=== PATIENT | male | born 1955 | race Hispanic/Latino ===

== ENCOUNTER → 2019-02-21 | Day surgery (SDC) | payer MEDICARE ==
[2019-02-20 17:18] LABS: BASOPHILS # (AUTO) 0.1 (0.0-0.1); BASOPHILS % 0.6 % (0.0-1.0); EOSINOPHILS # (AUTO) 0.1 (0.0-0.4); HEMATOCRIT 45.5 % (38.2-49.6); HEMOGLOBIN 15.2 g/dL (14.0-18.0); LYMPHOCYTES # (AUTO) 3.1 (1.0-3.2); LYMPHOCYTES % 37.8 % (18.0-39.1); MEAN CORPUSCULAR HEMOGLOBIN 29.9 pg (28-32); MEAN CORPUSCULAR HGB CONC 33.4 g/dL (31-35); MEAN CORPUSCULAR VOLUME 89.4 fL (81-99); MONOCYTES # (AUTO) 0.4 (0.2-0.8); MONOCYTES % 5.3 % (4.4-11.3); NEUTROPHILS # (AUTO) 4.5 (2.1-6.9); NEUTROPHILS % 55.1 % (38.7-80.0); PLATELET COUNT 353 x10e3/uL (140-360); RED BLOOD COUNT 5.09 x10e6/uL (4.3-5.7); RED CELL DISTRIBUTION WIDTH 13.1 % (11.7-14.4)
[2019-02-20 17:37] LABS: ALANINE AMINOTRANSFERASE 38 IU/L (0-55); ALBUMIN 3.7 g/dL (3.5-5.0); ALBUMIN/GLOBULIN RATIO 0.9 (0.8-2.0); ALKALINE PHOSPHATASE 79 IU/L (40-150); ANION GAP 15.2 mmol/L (8-16); BLOOD UREA NITROGEN 19 mg/dL (7-26); BUN/CREATININE RATIO 21 (6-25); CALCIUM 9.4 mg/dL (8.4-10.2); CARBON DIOXIDE 22 mmol/L (22-29); CHLORIDE 105 mmol/L (98-107); EST GLOMERULAR FILTRATION RATE > 60 ML/MIN (60-); GLUCOSE 101 mg/dL (74-118); POTASSIUM 4.2 mmol/L (3.5-5.1); SODIUM 138 mmol/L (136-145)
[~2019-02-21] MED LIST: ACETAMINOPHEN 1000 MG/100 ML IV ONE; ACETAMINOPHEN/CODEINE 300MG - 30MG TAB ONE; ASPIR 8181 MG PO; BUPIVACAINE 0.25%/EPI 30ML SDV INJ ONE; DESFLURANE 240 ML BTL INH ONE; DEXAMETHASONE SOD PHOS INJ 4 MG/ML VIAL ONE; FENTANYL CITRATE/PF 100MCG/2 ML INJ ONE; FLOMAX0.4 MG PO; GLYCOPYRROLATE INJ 1MG/ 5 ML SYR ONE; LIDOCAINE HCL 2% LOCAL INJ 5 ML SDV VIAL INJ ONE; MIDAZOLAM HCL 2 MG/2 ML VIAL ONE; NEOSTIGMINE 5 MG/5ML SYR ONE; NIFEDIPINE10 MG PO; OMEPRAZOLE40 MG PO; ONDANSETRON HCL INJ 2MG/ML 2ML 2 MG/ML VIAL ONE; OSTEO BI-FLEX1 EAC2 PO; PROPOFOL IV EMULSION 10 MG/ML 20 ML VIAL ONE; ROCURONIUM BROMIDE 10 MG/ML 5ML VIAL ONE; SLOW-MAG64 MG PO
--- NOTE | 2019-02-21 15:07 | Operative Report ---
DATE OF PROCEDURE: 02/21/2019 SURGEON: Humberto Linton MD PREOPERATIVE DIAGNOSES: Cholelithiasis, obesity. POSTOPERATIVE DIAGNOSES: Cholelithiasis, obesity. PROCEDURE PERFORMED: Laparoscopic cholecystectomy. ANESTHESIA: General. ESTIMATED BLOOD LOSS: Minimal. DRAINS: None. COMPLICATIONS: None. INDICATIONS AND FINDINGS: The patient is a 63-year-old male admitted for cholecystectomy. He was found to have gallstones by ultrasound after an episode of right upper quadrant pain, which require a workup and that revealed cholelithiasis, normal duct. Liver chemistries were normal. The patient was then referred for surgery. He had a history of dyspeptic symptoms. Intraoperative findings were cholelithiasis. No evidence of acute cholecystitis. INTRAOPERATIVE FINDINGS: There was no evidence of acute cholecystitis. No ductal dilatation. The liver appeared to be grossly normal. I was unable to palpate any stones or see any stones during the procedure. Final path report is pending. DESCRIPTION OF PROCEDURE: With the patient lying in the operative table in the supine position after administration of general anesthesia, he was prepped and draped for laparoscopic cholecystectomy. The procedure was begun by establishing the pneumoperitoneum in the right upper quadrant midclavicular line because the patient was of generous size and after performing the saline drop test, pneumoperitoneum was insufflated to 15 mm of pressure and then the 10/11 camera was placed in the umbilical site. We went ahead and then placed a 10 mm subxiphoid port and finally a right anterior axillary line trocar and then, the gallbladder was then retracted cephalad using grasping forceps through two 5 mm trocar exposing the neck of the gallbladder. We continued the dissection until we identified the cystic duct and so the junction with the common bile duct as well as the cystic artery. At that point, we went ahead and transected those two structures between titanium clips and then we went ahead and began the dissection of the gallbladder, staying close to the gallbladder, cauterized any bleeding points until we detached the gallbladder. The gallbladder was then extracted through the umbilical port. We inspected the operative field and at the end of the procedure, there was no bile leak, no bleeding, no apparent bowel injury. We then reduced the pneumoperitoneum under direct vision with the camera and then closed the wound using #0 Vicryl for the umbilical fascia, 3-0 Vicryl for the subcutaneous tissue in that location as well as the subxiphoid port and then, the skin of all the ports was closed using jean marie. 0.25% Marcaine with epinephrine was given as local block at the end of the case. The patient tolerated the procedure well, was taken to recovery room in stable condition. MD LAURIE Lanier/LUIZ /[id number]
[2019-02-21 15:55] VITALS: BP 154/98
== END | disposition home or self-care (01) ==
LOC: OR 08:25
PROVIDERS: ATTEND Surgery
DX: K80.10 Calculus of gallbladder with chronic cholecystitis without obstruction (principal); Z01.810 Encounter for preprocedural cardiovascular examination; Z01.812 Encounter for preprocedural laboratory examination; I10 Essential (primary) hypertension; Z87.891 Personal history of nicotine dependence; M12.9 Arthropathy, unspecified; K21.9 Gastro-esophageal reflux disease without esophagitis; E66.9 Obesity, unspecified
CPT/HCPCS: 36415; 47562; 80053; 85025; 88304; 93005; C1766; J0131; J1100; J2001; J2250; J2405; J2704; J3010; J3490

== ENCOUNTER 2019-09-26 15:49 | Emergency (ER) | payer MEDICARE ==
[~2019-09-26] VITALS: Ht 167.6 cm; Wt 94.3 kg
[~2019-09-26 15:49] MED LIST changes: -ACETAMINOPHEN 1000 MG/100 ML IV ONE; -ACETAMINOPHEN/CODEINE 300MG - 30MG TAB ONE; -BUPIVACAINE 0.25%/EPI 30ML SDV INJ ONE; -DESFLURANE 240 ML BTL INH ONE; -DEXAMETHASONE SOD PHOS INJ 4 MG/ML VIAL ONE; -FENTANYL CITRATE/PF 100MCG/2 ML INJ ONE; -GLYCOPYRROLATE INJ 1MG/ 5 ML SYR ONE; -LIDOCAINE HCL 2% LOCAL INJ 5 ML SDV VIAL INJ ONE; -MIDAZOLAM HCL 2 MG/2 ML VIAL ONE; -NEOSTIGMINE 5 MG/5ML SYR ONE; -ONDANSETRON HCL INJ 2MG/ML 2ML 2 MG/ML VIAL ONE; -PROPOFOL IV EMULSION 10 MG/ML 20 ML VIAL ONE; -ROCURONIUM BROMIDE 10 MG/ML 5ML VIAL ONE
[2019-09-26] MEDS ORDERED: SODIUM CHLORIDE 0.9% 1000ML 1,000 ML IV STA (16:33)
[2019-09-26 16:44] LABS: BASOPHILS # (AUTO) 0.1 (0.0-0.1); BASOPHILS % 0.4 % (0.0-1.0); EOSINOPHILS % 0.3 % (0.0-6.0); HEMATOCRIT 46.1 % (38.2-49.6); HEMOGLOBIN 15.3 g/dL (14.0-18.0); LYMPHOCYTES # (AUTO) 2.3 (1.0-3.2); LYMPHOCYTES % 20.6 % (18.0-39.1); MEAN CORPUSCULAR HEMOGLOBIN 29.6 pg (28-32); MEAN CORPUSCULAR HGB CONC 33.2 g/dL (31-35); MEAN CORPUSCULAR VOLUME 89.2 fL (81-99); MONOCYTES # (AUTO) 0.5 (0.2-0.8); MONOCYTES % 4.4 % (4.4-11.3); NEUTROPHILS # (AUTO) 8.3 (2.1-6.9); NEUTROPHILS % 73.9 % (38.7-80.0); PLATELET COUNT 379 x10e3/uL (140-360); RED BLOOD COUNT 5.17 x10e6/uL (4.3-5.7); RED CELL DISTRIBUTION WIDTH 13.1 % (11.7-14.4)
[2019-09-26] MEDS ORDERED: ONDANSETRON HCL INJ 2MG/ML 2ML 2 MG/ML VIAL IV STA (16:46)
[2019-09-26 16:48] LABS: BILIRUBIN,URINE NEGATIVE (NEGATIVE); CLARITY,URINE SL CLOUDY (CLEAR); COLOR,URINE YELLOW (YELLOW); KETONES,URINE TRACE (NEGATIVE); LEUKOCYTE ESTERASE ,URINE NEGATIVE (NEGATIVE); NITRITE,URINE NEGATIVE (NEGATIVE); PROTEIN,URINE DIPSTICK NEGATIVE (NEGATIVE); URINE UROBILINOGEN 0.2 mg/dL (0.2 - 1)
[2019-09-26 16:48] LABS: INR 0.9; PROTHROMBIN TIME 12.7 seconds (11.9-14.5)
[2019-09-26 16:49] LABS: PARTIAL THROMBOPLASTIN TIME 27.6 seconds (23.8-35.5)
[2019-09-26 16:56] LABS: ALANINE AMINOTRANSFERASE 55 IU/L (0-55); ALBUMIN 4.1 g/dL (3.5-5.0); ALBUMIN/GLOBULIN RATIO 1.1 (0.8-2.0); ALKALINE PHOSPHATASE 91 IU/L (40-150); BLOOD UREA NITROGEN 15 mg/dL (7-26); BUN/CREATININE RATIO 15 (6-25); CALCIUM 9.4 mg/dL (8.4-10.2); CARBON DIOXIDE 22 mmol/L (22-29); CHLORIDE 103 mmol/L (98-107); CREATINE KINASE 29 IU/L (30-200); CREATININE, SERUM 0.99 mg/dL (0.72-1.25); EST GLOMERULAR FILTRATION RATE > 60 ML/MIN (60-); GLUCOSE 141 mg/dL (74-118); MAGNESIUM 1.9 MG/DL (1.3-2.1); SODIUM 136 mmol/L (136-145)
[2019-09-26] MEDS ORDERED: MECLIZINE HCL 12.5 MG TAB PO ONE (17:00)
[2019-09-26 17:02] LABS: AMORPHOUS SEDIMENT,URINE MODERATE (FEW); BACTERIA,URINE MODERATE /HPF; EPITHELIAL CELLS,URINE RARE /LPF; MUCUS,URINE FEW (RARE)
--- NOTE | 2019-09-26 17:28 | Diagnostic Imaging Report ---
History:64-year-old male, dizziness, weakness Comparison studies: None Technique: Axial images were obtained from the skull base to the vertex. Coronal and sagittal images reconstructed from the axial data. Dose modulation, iterative reconstruction, and/or weight based adjustment of the mA/kV was utilized to reduce the radiation dose to as low as reasonably achievable. Intravenous contrast: None Findings: Scalp/skull: No abnormalities. Extra-axial spaces: No masses. No fluid collections. Brain sulci: Normal. Ventricles: Normal in caliber. No hydrocephalus. Parenchyma: Few hypodensities in the supratentorial white matter are small vessel ischemic changes. No masses, hemorrhage, acute or chronic cortical vascular insults. Sellar/suprasellar region: No abnormalities. Craniocervical junction: Patent foramen magnum. No Chiari one malformation. Incidental findings: Atherosclerotic calcifications in the carotid siphons . Impression: No acute abnormalities. Chronic findings: 1. Mild supratentorial white matter small vessel ischemic changes. Signed by: DR Vasile Rodriguez M.D. on 09/26/2019 7:22 PM
--- NOTE | 2019-09-26 17:40 | Diagnostic Imaging Report ---
EXAMINATION: CHEST SINGLE (PORTABLE) COMPARISON: None INDICATION: ^DIZZY ^[id number] ^[id number] DISCUSSION: Frontal view of the chest obtained at 1708 hours. HEART AND MEDIASTINUM: The heart is mildly enlarged. LINES: None. LUNGS/PLEURA: The lungs are well inflated and clear. No pneumonia or pulmonary edema. The minor fissure is mildly prominent. This is nonspecific. Mild eventration of the right diaphragm. No pleural effusion or pneumothorax. BONES AND SOFT TISSUES: No focal osseous lesion. The soft tissues are normal. IMPRESSION: Mild cardiomegaly. No acute cardiopulmonary process. Signed by: Dr. Mary Belle MD on 09/26/2019 5:37 PM
== END 2019-09-26 18:45 | disposition home or self-care (01) ==
LOC: ER 15:49
DX: R42 Dizziness and giddiness (principal); R53.1 Weakness; R11.0 Nausea; R73.9 Hyperglycemia, unspecified; I10 Essential (primary) hypertension; K21.9 Gastro-esophageal reflux disease without esophagitis
CPT/HCPCS: 36415; 70450; 71045; 80053; 81001; 82550; 82553; 82948; 83735; 83880; 84484; 85025; 85610; 85730; 87086; 93005; 99284; J2405; J7030; J8597